=== PATIENT | female | born 1935 | race Asian ===

== ENCOUNTER 2017-12-09 06:42 | Emergency (ER) | payer SELFPAY ==
[~2017-12-09] VITALS: Ht 147.3 cm; Wt 47.7 kg
[2017-12-09 08:28] LABS: GLUCOSE,POINT OF CARE 84 MG/DL (70-110)
[2017-12-09 08:31] LABS: BASOPHILS % (AUTO) 0.7 % (0.0-2.0); EOSINOPHILS % (AUTO) 1.1 % (1.0-6.0); HEMATOCRIT 42.2 % (36-46); HEMOGLOBIN 14.1 g/dL (12.0-16.0); LYMPHOCYTES % (AUTO) 13.4 % (22.0-44.0); MEAN CORPUSCULAR HEMOGLOBIN 30.8 pg (26.0-34.0); MEAN CORPUSCULAR HGB CONC 33.5 G/dL (31.0-37.0); MEAN CORPUSCULAR VOLUME 92 fL (80-100); MONOCYTES # (AUTO) 0.5 K/uL (0.1-1.0); MONOCYTES % (AUTO) 7.1 % (2.0-9.0); NEUTROPHILS # (AUTO) 5.8 K/uL (1.8-7.7); NEUTROPHILS % (AUTO) 77.7 % (40.0-70.0); PLATELET COUNT (AUTO) 283 K/uL (150-450); RED BLOOD CELL COUNT(AUTO) 4.59 MIL/uL (4.00-5.20)
[2017-12-09 08:35] LABS: APPEARANCE,URINE CLEAR (CLEAR); BILIRUBIN,URINE NEGATIVE (NEGATIVE); GLUCOSE, URINE (UA) NEGATIVE (NEGATIVE); KETONES,URINE NEGATIVE (NEGATIVE); LEUKOCYTE ESTERASE ,URINE NEGATIVE (NEGATIVE); NITRATE,URINE NEGATIVE (NEGATIVE); OCCULT BLOOD,URINE NEGATIVE (NEGATIVE); PROTEIN,URINE SEE CONFIRM (NEGATIVE); UROBILINOGEN,URINE 0.2 mg/dL (<=1.0)
[2017-12-09 08:37] LABS: RBC,URINE None Seen /HPF (0-2); SULFOSALICYLIC ACID,URINE 2+ (Negative)
[2017-12-09 08:38] LABS: BACTERIA,URINE Rare /HPF (None Seen); RENAL EPITHELIAL CELLS,URINE Few /LPF (None Seen); SQUAMOUS EPITHELIAL CELL,UR Few /LPF (None Seen); WBC,URINE 0-2 /HPF (0-5)
[2017-12-09 08:40] LABS: CALCIUM, TOTAL 9.9 mg/dL (8.8-10.5); CREATININE 1.13 mg/dL (0.60-1.30); POTASSIUM 4.9 mmol/L (3.5-5.1)
[2017-12-09] MEDS ORDERED: LISI-662 PO (08:41)
[2017-12-09] MEDS ORDERED: METO25 PO (08:41)
[2017-12-09 08:46] LABS: ALBUMIN 3.6 g/dL (3.4-5.0); BILIRUBIN,TOTAL 0.3 mg/dL (0.1-1.0); TOTAL PROTEIN, SERUM 7.4 g/dL (6.4-8.2)
[2017-12-09 08:48] LABS: LACTIC ACID 1.7 mmol/L (0.4-2.0)
[2017-12-09 11:39] VITALS: BP 147/80
== END 2017-12-09 12:03 | disposition home or self-care (01) ==
LOC: EDBD 06:44 → EMS 06:44
DX: S83.511A Sprain of anterior cruciate ligament of right knee, initial encounter (principal); S83.512A Sprain of anterior cruciate ligament of left knee, initial encounter; F03.90 Unspecified dementia, unspecified severity, without behavioral disturbance, psychotic disturbance, mood disturbance, and anxiety; I63.9 Cerebral infarction, unspecified; R79.89 Other specified abnormal findings of blood chemistry; M25.78 Osteophyte, vertebrae; E04.1 Nontoxic single thyroid nodule; W19.XXXA Unspecified fall, initial encounter; Y93.89 Activity, other specified; Y92.89 Other specified places as the place of occurrence of the external cause; Y99.8 Other external cause status
CPT/HCPCS: 70450; 72125; 72170; 82948; 82962; 83605; 93005; 99285

== ENCOUNTER 2018-06-09 20:09 | Emergency (ER) | payer MEDICARE, MEDICAID ==
[~2018-06-09] VITALS: Ht 162.6 cm; Wt 50.0 kg
[~2018-06-09 20:09] MED LIST: LISI-662 PO; METO25 PO
[2018-06-09] MEDS ORDERED: METO50 PO (21:12)
[2018-06-09] MEDS ORDERED: TraMADol HCL 50 MG TABLET PO ONE (21:30)
[2018-06-09 22:13] VITALS: BP 139/76
== END 2018-06-09 22:49 | disposition home or self-care (01) ==
LOC: EMS 20:10
DX: G89.29 Other chronic pain (principal); M25.551 Pain in right hip; M25.552 Pain in left hip; M54.5 Low back pain; I10 Essential (primary) hypertension
CPT/HCPCS: 99283